=== PATIENT | male | born 1950 | race Caucasian/White ===

== ENCOUNTER 2017-12-29 00:06 | Emergency (ER) | payer MEDICARE, MEDICAID ==
[2017-12-29 00:07] VITALS: BMI 29.0
[2017-12-29 00:17] VITALS: RESP 18; TEMP 98.1
[2017-12-29] MEDS ORDERED: Albuterol-Ipratrop 3 mg / 0.5 (3 ml) UD IH STA (00:50)
--- NOTE | 2017-12-29 00:50 | ED PDOC ---
Arrival/HPI - General Chief Complaint: Flu-like Symptoms Time Seen by Provider: 12/29/17 00:44 Historian: Patient, Family - History of Present Illness Narrative History of Present Illness (Text): 12/29/17 00:49 Chaim Don is a 67 year old male, whose past medical history includes hypertension and diabetes, who presents to the Emergency department accompanied by family complaining of flu-like symptoms and dry cough since yesterday. Patient states he did not take any medications at home and does not use an inhaler. Patient denies any fever, chills, chest pain, shortness of breath, nausea, vomiting, neck pain, headache, dizziness, or any other complaints. Time/Duration: < week (yesterday) Symptom Onset: Gradual Symptom Course: Unchanged Activities at Onset: Light Context: Home Past Medical History - Provider Review Nursing Documentation Reviewed: Yes - Infectious Disease Hx of Infectious Diseases: None - Cardiac Hx Cardiac Disorders: Yes Hx Hypertension: Yes Hx Pacemaker: No - Pulmonary Hx Respiratory Disorders: No - Neurological Hx Neurological Disorder: Yes Hx Paralysis: No Hx Vertigo: Yes - HEENT Hx HEENT Disorder: No - Renal Hx Renal Disorder: No - Endocrine/Metabolic Hx Endocrine Disorders: Yes Hx Diabetes Mellitus Type 2: Yes - Hematological/Oncological Hx Blood Disorders: No Hx Blood Transfusions: No Hx Blood Transfusion Reaction: No - Integumentary Hx Dermatological Disorder: No - Musculoskeletal/Rheumatological Hx Musculoskeletal Disorders: No - Gastrointestinal Hx Gastrointestinal Disorders: Yes Hx Gastrointestinal Ulcer: Yes - Genitourinary/Gynecological Hx Genitourinary Disorders: No - Psychiatric Hx Psychophysiologic Disorder: No Hx Emotional Abuse: No Hx Physical Abuse: No Hx Substance Use: No - Surgical History Hx Inguinal Hernia Repair: Yes - Anesthesia Hx Anesthesia Reactions: No Hx Malignant Hyperthermia: No - Suicidal Assessment Feels Threatened In Home Enviroment: No Family/Social History - Physician Review Nursing Documentation Reviewed: Yes Family/Social History: Unknown Family HX Smoking Status: Never Smoked Hx Alcohol Use: Yes (SOCIAL) Hx Substance Use: No Allergies/Home Meds Allergies/Adverse Reactions: Allergies No Known Allergies Allergy (Verified 06/06/15 12:43) Home Medications: Home Meds Medication Instructions Recorded Confirmed Glyburide [Glyburide] 5 mg PO DAILY 02/06/14 12/29/17 metFORMIN [glucOPHAGE] 850 mg PO BID 02/06/14 12/29/17 Atorvastatin [Lipitor] 10 mg PO DIN 06/06/15 12/29/17 Donepezil [Aricept] 10 mg PO QPM 06/06/15 12/29/17 Esomeprazole Magnesium [Nexium] 40 mg PO DAILY 12/29/17 12/29/17 Lisinopril/Hydrochlorothiazide 20 mg PO DAILY 12/29/17 12/29/17 [Lisinopril-Hctz 20-25 mg Tab] Meclizine HCl [Motion Sickness II] 25 mg PO BID 12/29/17 12/29/17 Niacin [Niaspan] 1,000 mg PO DAILY 12/29/17 12/29/17 Simvastatin [Zocor] 40 mg PO DAILY 12/29/17 12/29/17 Review of Systems - Physician Review All systems were reviewed & negative as marked: Yes - Review of Systems Constitutional: Normal. absent: Fevers Eyes: Normal ENT: Normal Respiratory: Cough. absent: SOB, Sputum Cardiovascular: Normal. absent: Chest Pain Gastrointestinal: Normal. absent: Abdominal Pain, Diarrhea, Nausea, Vomiting Genitourinary Male: Normal. absent: Dysuria, Frequency, Hematuria, Urinary Output Changes Musculoskeletal: Normal. absent: Back Pain, Neck Pain Skin: Normal. absent: Rash Neurological: Normal. absent: Headache, Dizziness Endocrine: Normal Hemo/Lymphatic: Normal Psychiatric: Normal Physical Exam Vital Signs Reviewed: Yes Vital Signs Temp Pulse Resp BP Pulse Ox 12/29/17 00:17 98.1 F 97 H 18 157/100 H 100 Temperature: Afebrile Blood Pressure: Hypertensive Pulse: Regular Respiratory Rate: Normal Appearance: Positive for: Well-Appearing, Non-Toxic, Comfortable Pain Distress: None Mental Status: Positive for: Alert and Oriented X 3 - Systems Exam Head: Present: Atraumatic, Normocephalic Pupils: Present: PERRL Extroacular Muscles: Present: EOMI Conjunctiva: Present: Normal Mouth: Present: Moist Mucous Membranes Neck: Present: Normal Range of Motion Respiratory/Chest: Present: Clear to Auscultation, Good Air Exchange. No: Respiratory Distress, Accessory Muscle Use Cardiovascular: Present: Regular Rate and Rhythm, Normal S1, S2. No: Murmurs Abdomen: Present: Normal Bowel Sounds. No: Tenderness, Distention, Peritoneal Signs Back: Present: Normal Inspection Upper Extremity: Present: Normal Inspection. No: Cyanosis, Edema Lower Extremity: Present: Normal Inspection. No: Edema Neurological: Present: GCS=15, CN II-XII Intact, Speech Normal Skin: Present: Warm, Dry, Normal Color. No: Rashes Psychiatric: Present: Alert, Oriented x 3, Normal Insight, Normal Concentration Medical Decision Making ED Course and Treatment: 12/29/17 00:49 Impression: 67 year old male complaining of dry cough since yesterday. Differential Diagnosis included but are not limited to: viral syndrome vs influenza Plan: -- Rapid influenza -- Duoneb -- Reassess and disposition Progress Notes: 12/29/17 01:45 Pt positive for influenza b. On re-evaluation, patient feels better and is in no acute distress. I have discussed the results and plan with the patient, who expresses understanding. Patient in agreement with plan to be discharged home. Patient is stable for discharge. Patient was instructed to follow up with physician or return if symptoms worsen or new concerning symptoms arise. - Lab Interpretations Lab Results: Lab Results 12/29/17 00:50: Influenza Typ A,B (EIA) Pos for influenza b H - Medication Orders Current Medication Orders: Oseltamivir Phosphate (Tamiflu Cap) 75 mg PO ONCE ONE PRN Reason: Protocol Stop: 12/29/17 01:47 Discontinued Medications Albuterol/Ipratropium (Duoneb 3 Mg/0.5 Mg (3 Ml) Ud) 3 ml IH ONCE STA Stop: 12/29/17 00:51 Last Admin: 12/29/17 01:00 Dose: 3 ml - Scribe Statement The provider has reviewed the documentation as recorded by the Randy Woo Provider Scribe Attestation: All medical record entries made by the Scribanju were at my direction and personally dictated by me. I have reviewed the chart and agree that the record accurately reflects my personal performance of the history, physical exam, medical decision making, and the department course for this patient. I have also personally directed, reviewed, and agree with the discharge instructions and disposition. Disposition/Present on Arrival - Present on Arrival Any Indicators Present on Arrival: No History of DVT/PE: No History of Uncontrolled Diabetes: Yes Urinary Catheter: No History of Decub. Ulcer: No History Surgical Site Infection Following: None - Disposition Have Diagnosis and Disposition been Completed?: Yes Diagnosis: Influenza Disposition: HOME/ ROUTINE Disposition Time: 01:48 Patient Plan: Discharge Patient Problems: Current Active Problems Problem Status Onset Influenza Acute Condition: STABLE Discharge Instructions (ExitCare): Flu, Adult (DC) Additional Instructions: Drink plenty of liquids/take meds as prescribed/follow up with your doctor this week Prescriptions: guaiFENesin/Dextromethorphan [guaiFENesin-DM] 5 ml PO Q4 PRN #8 oz PRN Reason: Cough Oseltamivir [Tamiflu] 75 mg PO BID #10 cap Forms: [employer] ([place]i)
[2017-12-29 02:11] VITALS: BP 128/83; PULSE 71; O2SAT 98
== END 2017-12-29 02:11 | disposition home or self-care (01) ==
LOC: ED 00:06
DX: J11.1 Influenza due to unidentified influenza virus with other respiratory manifestations (principal)